=== PATIENT | male | born 2000 | race Caucasian/White ===

== ENCOUNTER 2023-12-24 08:43 | Emergency (ER) | payer BC ==
[~2023-12-24] VITALS: Ht 172.7 cm; Wt 74.0 kg
[2023-12-24 08:55] VITALS: BP 136/91; RESP 20; TEMP 98.6; O2SAT 100
[2023-12-24 08:57] VITALS: PULSE 99
[2023-12-24] MEDS ORDERED: DOXY-456 MT (09:26)
[2023-12-24] MEDS ORDERED: NAPR-420 MT (09:27)
== END 2023-12-24 09:55 | disposition home or self-care (01) ==
LOC: ER 09:15
DX: S80.862A Insect bite (nonvenomous), left lower leg, initial encounter (principal); W57.XXXA Bitten or stung by nonvenomous insect and other nonvenomous arthropods, initial encounter; Y93.89 Activity, other specified; Y92.89 Other specified places as the place of occurrence of the external cause; Y99.8 Other external cause status
CPT/HCPCS: 99283